=== PATIENT | male | born 1985 | race Caucasian/White ===

== ENCOUNTER 2017-06-10 16:11 | Emergency (ER) | payer MEDICAID, OTHER ==
[~2017-06-10] VITALS: Ht 188 cm; Wt 106.8 kg
[~2017-06-10 16:11] MED LIST: CYCL-1 PO; DIL100C PO; MELO-100 PO
[2017-06-10] MEDS ORDERED: TETanus/Pertussis (Acell)/Diphther VAC/PF (Tdap-Adult) 0.5ml syringe IM ONE (16:20)
[2017-06-10] MEDS ORDERED: BUPIVAcaine/PF 2.5 mg/ml (0.25%) 30ml vial IJ ONE ×2 (16:20→19:45)
[2017-06-10] MEDS ORDERED: ceFAZolin 1000mg inj IV ONE (19:10)
[2017-06-10] MEDS ORDERED: ondansetron/PF 4mg/2ml inj IV ONE (19:10)
[2017-06-10] MEDS ORDERED: gentamicin in saline, iso-osm 80 MG/50 ML premix IV ONE (19:10)
[2017-06-10] MEDS ORDERED: morphine 4 MG/ML inj SYRINge IV ONE (19:10)
[2017-06-10] MEDS ORDERED: morphine 2 MG/ML inj. syringe IV STA (19:18)
[2017-06-10] MEDS ORDERED: ONDA4TAB9 PO (19:21)
[2017-06-10] MEDS ORDERED: CEPH-572 PO (19:21)
[2017-06-10] MEDS ORDERED: HYDR-565 PO (19:21)
[2017-06-10] MEDS ORDERED: gentamicin inj 80 MG in normal saline 100ml IV soln 100 ML IV ONE (19:25)
[2017-06-10] MEDS ORDERED: cefazolin/dext.iso 2gm/50ml 50 ML IV ONE (19:25)
[2017-06-10] MEDS ORDERED: bacitracin 15gm ointment TP ONE (20:35)
[2017-06-10 20:57] VITALS: BP 159/82
== END 2017-06-10 21:25 | disposition home or self-care (01) ==
LOC: ER 16:12
DX: S92.514B Nondisplaced fracture of proximal phalanx of right lesser toe(s), initial encounter for open fracture (principal); S91.114A Laceration without foreign body of right lesser toe(s) without damage to nail, initial encounter; G89.29 Other chronic pain; Z88.8 Allergy status to other drugs, medicaments and biological substances; Z88.5 Allergy status to narcotic agent; Z91.048 Other nonmedicinal substance allergy status; Z79.899 Other long term (current) drug therapy; W26.8XXA Contact with other sharp object(s), not elsewhere classified, initial encounter; Y93.89 Activity, other specified; Y92.89 Other specified places as the place of occurrence of the external cause; Y99.8 Other external cause status
CPT/HCPCS: 12001; 12044; 73630; 90471; 90715; 96365; 96368; 96375; 99284; A6223; A6449; J0690; J1580; J2270; J2405; J3490; J7030; 96372

== ENCOUNTER 2018-06-11 22:32 | Emergency (ER) | payer MEDICAID ==
[~2018-06-11] VITALS: Ht 188 cm; Wt 111.0 kg
[2018-06-11 22:34] VITALS: BP 125/77
[2018-06-11] MEDS ORDERED: LORazepam 1 MG tablet PO ONE (22:40)
== END 2018-06-11 22:50 | disposition home or self-care (01) ==
LOC: ER 22:33
DX: G40.909 Epilepsy, unspecified, not intractable, without status epilepticus (principal); G89.29 Other chronic pain; F17.200 Nicotine dependence, unspecified, uncomplicated; Z00.00 Encounter for general adult medical examination without abnormal findings; Z88.5 Allergy status to narcotic agent; Z88.8 Allergy status to other drugs, medicaments and biological substances; Z91.013 Allergy to seafood
CPT/HCPCS: 99283

== ENCOUNTER 2019-03-11 08:20 | Emergency (ER) | payer MEDICAID ==
[~2019-03-11] VITALS: Ht 188 cm; Wt 118.5 kg
[2019-03-11 08:22] VITALS: BP 127/82
[2019-03-11] MEDS ORDERED: TRAM50TA2 PO (09:14)
== END 2019-03-11 09:45 | disposition home or self-care (01) ==
LOC: ER 08:21
DX: M25.561 Pain in right knee (principal); G89.29 Other chronic pain; M79.89 Other specified soft tissue disorders; Z88.6 Allergy status to analgesic agent; Z79.899 Other long term (current) drug therapy; X50.1XXA Overexertion from prolonged static or awkward postures, initial encounter; Y93.89 Activity, other specified; Y92.89 Other specified places as the place of occurrence of the external cause; Y99.8 Other external cause status
CPT/HCPCS: 73564; 99283

== ENCOUNTER 2020-01-03 10:13 | Emergency (ER) | payer MEDICAID ==
[~2020-01-03] VITALS: Ht 177.8 cm; Wt 81.8 kg
[2020-01-03 10:47] LABS: BASOPHILS # (AUTO) 0.1 X10'3 (0-0.2); BASOPHILS % (AUTO) 0.9 % (0-1); EOSINOPHILS # (AUTO) 0.1 X10'3 (0-0.9); EOSINOPHILS % (AUTO) 1.2 % (0-6); HEMATOCRIT 45.5 % (42.0-52.0); HEMOGLOBIN 15.7 g/dl (14.0-17.9); LYMPHOCYTES # (AUTO) 2.1 X10'3 (1.1-4.8); LYMPHOCYTES % (AUTO) 30.5 % (21-51); MEAN CORPUSCULAR HEMOGLOBIN 32.2 PG (27.0-31.0); MEAN CORPUSCULAR HGB CONC 34.5 g/dL (33.0-36.5); MEAN CORPUSCULAR VOLUME 93.2 FL (78-98); MEAN PLATELET VOLUME 8.2 FL (7.4-10.4); MONOCYTES # (AUTO) 0.4 X10'3 (0-0.9); NEUTROPHILS # (AUTO) 4.3 X10'3 (1.8-7.7); NEUTROPHILS % (AUTO) 61.4 % (42-75); PLATELET COUNT 247 X10'3 (140-440); RED BLOOD COUNT 4.88 X10'6 (4.70-6.10); RED CELL DISTRIBUTION WIDTH 14.1 % (11.5-14.5); WHITE BLOOD COUNT 6.9 X10'3 (4.5-11.0)
[2020-01-03 11:05] LABS: BILIRUBIN,TOTAL 0.4 MG/DL (0.1-1.0); BLOOD UREA NITROGEN 11 MG/DL (7-18); BUN/CREATININE RATIO 13.4 (5.4-32.0); CHLORIDE 107 MMOL/L (99-107); CREATININE 0.82 MG/DL (0.60-1.10); GLUCOSE 86 MG/DL (70-104); SODIUM 140 MMOL/L (135-145); eGFR > 90 ML/MIN
[2020-01-03 11:08] LABS: D-DIMER < 0.19 MG/L FEU (0-0.50)
[2020-01-03 11:13] LABS: ALANINE AMINOTRANSFERASE 34 U/L (12-78); ALBUMIN/GLOBULIN RATIO 1.1 (1.1-1.5); ALKALINE PHOSPHATASE 97 IU/L (46-116); ANION GAP 7 (8-16); ASPARTATE AMINO TRANSFERASE 23 U/L (10-37); CALCIUM 9.3 MG/DL (8.5-10.1); POTASSIUM 3.9 MMOL/L (3.5-5.1); TOTAL CARBON DIOXIDE 26.3 MMOL/L (24-32); TOTAL PROTEIN 7.5 G/DL (6.4-8.2)
[2020-01-03 11:32] LABS: URINE AMPHETAMINE SCREEN POSITIVE (Neg); URINE BARBITUATE SCREEN NEGATIVE (Neg); URINE BENZODIAZEPINES SCREEN NEGATIVE (Neg); URINE CANNABINOID SCREEN POSITIVE (Neg); URINE COCAINE SCREEN NEGATIVE (Neg); URINE METHADONE SCREEN NEGATIVE (Neg); URINE OPIATE SCREEN NEGATIVE (Neg); URINE PHENCYCLIDINE SCREEN NEGATIVE (Neg)
[2020-01-03 14:25] VITALS: BP 135/92
== END 2020-01-03 14:26 | disposition home or self-care (01) ==
LOC: ER 10:13
DX: R07.89 Other chest pain (principal); R20.0 Anesthesia of skin; R06.02 Shortness of breath; F15.90 Other stimulant use, unspecified, uncomplicated; G89.29 Other chronic pain; F12.90 Cannabis use, unspecified, uncomplicated; Z86.69 Personal history of other diseases of the nervous system and sense organs; Z72.89 Other problems related to lifestyle; Z88.5 Allergy status to narcotic agent; Z91.013 Allergy to seafood; Z79.899 Other long term (current) drug therapy
CPT/HCPCS: 36415; 71045; 80053; 80305; 83880; 84484; 85025; 85379; 85610; 87635; 93005; 99285

== ENCOUNTER 2020-06-05 12:49 | Emergency (ER) | payer MEDICAID ==
[~2020-06-05] VITALS: Ht 188 cm; Wt 111.4 kg
[2020-06-05 12:55] VITALS: BP 169/100
[2020-06-05] MEDS ORDERED: CEPH-585 PO (13:04)
[2020-06-05] MEDS ORDERED: bacitracin 15gm ointment TP ONE (13:05)
== END 2020-06-05 13:15 | disposition home or self-care (01) ==
LOC: ER 12:49
DX: S50.311A Abrasion of right elbow, initial encounter (principal); G89.29 Other chronic pain; F12.90 Cannabis use, unspecified, uncomplicated; Z72.89 Other problems related to lifestyle; Z86.69 Personal history of other diseases of the nervous system and sense organs; Z88.8 Allergy status to other drugs, medicaments and biological substances; Z79.2 Long term (current) use of antibiotics; Z79.899 Other long term (current) drug therapy; V29.9XXA Motorcycle rider (driver) (passenger) injured in unspecified traffic accident, initial encounter; Y93.89 Activity, other specified; Y92.89 Other specified places as the place of occurrence of the external cause; Y99.8 Other external cause status
CPT/HCPCS: 99283

== ENCOUNTER 2023-11-21 17:53 | Emergency (ER) | payer MEDICAID, OTHER ==
[~2023-11-21] VITALS: Ht 188 cm; Wt 106.9 kg
[2023-11-21 18:08] VITALS: BP 141/75; PULSE 99; RESP 16; O2SAT 98
[2023-11-21] MEDS ORDERED: CLIN-97 PO (18:28)
[2023-11-21] MEDS ORDERED: BENZ9GEL TOP (18:28)
[2023-11-21 18:32] VITALS: TEMP 99.3
== END 2023-11-21 18:36 | disposition home or self-care (01) ==
LOC: ER 17:54
DX: K04.7 Periapical abscess without sinus (principal); F17.210 Nicotine dependence, cigarettes, uncomplicated; G89.29 Other chronic pain; M54.9 Dorsalgia, unspecified; F12.90 Cannabis use, unspecified, uncomplicated; F41.0 Panic disorder [episodic paroxysmal anxiety]; Z72.89 Other problems related to lifestyle; Z88.8 Allergy status to other drugs, medicaments and biological substances; Z91.018 Allergy to other foods; Z79.899 Other long term (current) drug therapy
CPT/HCPCS: 99283